=== PATIENT | male | born 1985 | race Caucasian/White ===

== ENCOUNTER 2017-10-13 22:14 | Emergency (ER) | payer OTHER ==
[2017-10-13 22:22] VITALS: BP 161/105; PULSE 110; RESP 16; TEMP 98.4; O2SAT 94
[2017-10-13] MEDS ORDERED: AMOXICILLIN/CLAVULANATE POT 875/125 MG TAB PO ONE (22:37)
[2017-10-13] MEDS ORDERED: TDAP ADULT 0.5 ML INJ (BOOSTRIX) IM ONE (22:37)
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
== END 2017-10-13 22:52 | disposition home or self-care (01) ==
DX: S41.152A Open bite of left upper arm, initial encounter (principal); Z23 Encounter for immunization; Z87.891 Personal history of nicotine dependence; Y04.1XXA Assault by human bite, initial encounter; Y92.69 Other specified industrial and construction area as the place of occurrence of the external cause; Y99.0 Civilian activity done for income or pay; Y93.89 Activity, other specified